=== PATIENT | female | born 1980 | race American Indian/Alaskan Native ===

== ENCOUNTER 2019-09-22 10:01 | Emergency (ER) | payer BC ==
[2019-09-22 10:13] VITALS: BP 121/86
--- NOTE | 2019-09-22 11:10 | Cat Scan Report ---
{null, CT HEAD WITHOUT CONTRAST INDICATION / CLINICAL INFORMATION: neuro deficits <6hrs or sx present upon awakening. TECHNIQUE: Axial imaging performed from the skull apex through the skull base without the use of cont rast. Sagittal and coronal reformatted images. All CT scans at this location are performed using CT dose reduction for ALARA by means of automated exposure control. COMPARISON: None available. FINDINGS: CEREBRAL PARENCHYMA: No significant abnormality. No acute territorial infarct. HEMORRHAGE: None. EXTRA-AXIAL SPACES: Normal in size and morphology for the patient's age. VENTRICULAR SYSTEM: Normal in size and morphology for the patient's age. MIDLINE SHIFT OR HERNIATION: None. CEREBELLUM / BRAINSTEM: No significant abnormality. CALVARIUM: No significant abnormality. ORBITS: Normal as visualized. PARANASAL SINUSES / MASTOID AIR CELLS: Normal as visualized. SOFT TISSUES of HEAD: No significant abnormality. ADDITIONAL FINDINGS: None. IMPRESSION: No acute intracranial abnormality. Signer Name: Magdy Ramirez Jr, MD Signed: 09/22/2019 11:06 AM Workstation Name: [id number] }
[2019-09-22 11:59] LABS: Basophils # (Auto) 0.1 K/mm3 (0.0-0.1); Basophils % (Auto) 1.1 % (0.0-1.8); Eosinophils # (Auto) 0.1 K/mm3 (0.0-0.4); Eosinophils % (Auto) 1.7 % (0.0-4.3); Hematocrit 32.3 % (30.3-42.9); Hemoglobin 10.2 gm/dl (10.1-14.3); Lymphocytes # (Auto) 1.9 K/mm3 (1.2-5.4); Mean Corpuscular HGB Conc 32 % (30-34); Monocytes # (Auto) 0.4 K/mm3 (0.0-0.8); Monocytes % (Auto) 8.9 % (0.0-7.3); Platelet Count 199 K/mm3 (140-440); Red Blood Count 4.62 M/mm3 (3.65-5.03); Red Cell Distribution Width 19.1 % (13.2-15.2)
[2019-09-22 12:01] LABS: Mean Corpuscular Volume 70 fl (79-97)
[2019-09-22 12:13] LABS: INR 1.04 (0.87-1.13)
[2019-09-22 12:14] LABS: Partial Thromboplastin Time 27.8 Sec. (24.2-36.6)
[2019-09-22 12:22] LABS: BUN/Creatinine Ratio 10; Blood Urea Nitrogen 9 mg/dL (7-17); Calcium 9.3 mg/dL (8.4-10.2); Hemolysis Index 1
--- NOTE | 2019-09-22 13:10 | Emergency Department Report ---
{null, Blank Doc - Documentation Documentation: 38-year-old female that presents with acute headache with some blurry vision to the right eye. Exam: neuro exam within normal limits. This initial assessment/diagnostic orders/clinical plan/treatment(s) is/are subject to change based on patient's health status, clinical progression and re- assessment by fellow clinical providers in the ED. Further treatment and workup at subsequent clinical providers discretion. Patient/guardians urged not to elope from the ED as their condition may be serious if not clinically assessed and managed. Initial orders include: 1- Patient sent to [facility] for further evaluation and treatment 2- labs already obtained 3- CT of head within normal limits }
[2019-09-22] MEDS ORDERED: dexAMETHasone 20 MG/5 ML VIAL IV ONE (13:34)
[2019-09-22] MEDS ORDERED: KETOROLAC 30 MG/1 ML INJ IM ONE (13:35)
--- NOTE | 2019-09-22 13:40 | Emergency Department Report ---
{null, ED Headache HPI - General Chief Complaint: Headache Stated Complaint: HEADACHE/VISION CHANGE Time Seen by Provider: 09/22/19 13:08 - History of Present Illness Initial Comments: 38-year-old -[place] female patient with history of anemia presents with complaints of headache and right eye blurred vision times today. Patient states she woke up around 5 AM this morning with a mild 5/10 in severity headache that was bilateral. Patient states around 9 AM she developed decreased vision in part of her right thigh. She denies any further vision changes at this time, but states the headache remains at a 5/10 in severity bilaterally. She describes the headache as throbbing in nature and admits to history of migraines many years ago. Patient states she does not believe she has had a migraine in the past 20 years. She denies any head injuries, numbness/tingling/weakness in her limbs, speech changes, confusion, neck pain, difficulty with ambulation, or dizziness. She also admits to sensitivity to light and sound. Quality: moderate, constant, throbbing Head Injury Location: temporal Allergies/Adverse Reactions: Allergies No Known Allergies Allergy (Unverified 09/22/19 10:16) ED Review of Systems ROS: Stated complaint: HEADACHE/VISION CHANGE Other details as noted in HPI Constitutional: denies: chills, fever Eyes: vision change. denies: eye pain, eye discharge Respiratory: denies: cough, shortness of breath Cardiovascular: denies: chest pain, edema, syncope Endocrine: denies: excessive sweating, flushing Gastrointestinal: denies: abdominal pain, nausea, vomiting Musculoskeletal: denies: back pain Skin: denies: rash, lesions, change in color Neurological: headache. denies: weakness, numbness, paresthesias, confusion, abnormal gait ED Past Medical Hx - Past Medical History Previous Medical History?: Yes Additional medical history: Anemia - Surgical History Past Surgical History?: No ED Physical Exam - General Limitations: No Limitations General appearance: alert, in no apparent distress - Head Head exam: Present: atraumatic, normocephalic - Eye Eye exam: Present: normal appearance, PERRL, EOMI. Absent: scleral icterus - ENT ENT exam: Present: mucous membranes moist - Neck Neck exam: Present: normal inspection - Respiratory Respiratory exam: Present: normal lung sounds bilaterally. Absent: respiratory distress - Cardiovascular Cardiovascular Exam: Present: regular rate, normal rhythm. Absent: systolic murmur, diastolic murmur, rubs, gallop - Extremities Exam Extremities exam: Present: normal inspection - Back Exam Back exam: Present: normal inspection - Neurological Exam Neurological exam: Present: alert, oriented X3, CN II-XII intact, normal gait. Absent: motor sensory deficit - Expanded Neurological Exam Expanded Cranial nerves: EOM's Intact: Normal Cerebellar function: Finger to Nose: Normal, Heel to Salazar: Normal, Romberg: Normal Sensory exam: Upper Extremity Light Touch: Normal, Lower Extremity Light Touch: Normal Motor strength exam: RUE: 5, LUE: 5, RLE: 5, LLE: 5 - Psychiatric Psychiatric exam: Present: normal affect, normal mood - Skin Skin exam: Present: warm ( ), dry, intact, normal color. Absent: rash ED Course Vital Signs 09/22/19 10:13 Temperature 97.9 F Pulse Rate 66 Respiratory 16 Rate Blood Pressure 121/86 [Right] O2 Sat by Pulse 99 Oximetry ED Medical Decision Making - Lab Data Result diagrams: 09/22/19 11:10 09/22/19 11:10 Lab Results 09/22/19 09/22/19 09/22/19 Range/Units 10:20 11:10 11:10 WBC 4.8 (4.5-11.0) K/mm3 RBC 4.62 (3.65-5.03) M/mm3 Hgb 10.2 (10.1-14.3) gm/dl Hct 32.3 (30.3-42.9) % MCV 70 L (79-97) fl MCH 22 L (28-32) pg MCHC 32 (30-34) % RDW 19.1 H (13.2-15.2) % Plt Count 199 (140-440) K/mm3 Lymph % (Auto) 40.0 H (13.4-35.0) % Fountain % (Auto) 8.9 H (0.0-7.3) % Eos % (Auto) 1.7 (0.0-4.3) % Baso % (Auto) 1.1 (0.0-1.8) % Lymph # 1.9 (1.2-5.4) K/mm3 Fountain # 0.4 (0.0-0.8) K/mm3 Eos # 0.1 (0.0-0.4) K/mm3 Baso # 0.1 (0.0-0.1) K/mm3 Seg Neutrophils % 48.3 (40.0-70.0) % Seg Neutrophils # 2.3 (1.8-7.7) K/mm3 PT 13.7 (12.2-14.9) Sec. INR 1.04 (0.87-1.13) APTT 27.8 (24.2-36.6) Sec. Thrombin Time (15.1-19.6) Sec. Sodium (137-145) mmol/L Potassium (3.6-5.0) mmol/L Chloride (98-107) mmol/L Carbon Dioxide (22-30) mmol/L Anion Gap mmol/L BUN (7-17) mg/dL Creatinine (0.7-1.2) mg/dL Estimated GFR ml/min BUN/Creatinine Ratio % Glucose (65-100) mg/dL POC Glucose 112 H (70-105) Calcium (8.4-10.2) mg/dL Troponin T (0.00-0.029) ng/mL 09/22/19 09/22/19 Range/Units 11:10 11:10 WBC (4.5-11.0) K/mm3 RBC (3.65-5.03) M/mm3 Hgb (10.1-14.3) gm/dl Hct (30.3-42.9) % MCV (79-97) fl MCH (28-32) pg MCHC (30-34) % RDW (13.2-15.2) % Plt Count (140-440) K/mm3 Lymph % (Auto) (13.4-35.0) % Fountain % (Auto) (0.0-7.3) % Eos % (Auto) (0.0-4.3) % Baso % (Auto) (0.0-1.8) % Lymph # (1.2-5.4) K/mm3 Fountain # (0.0-0.8) K/mm3 Eos # (0.0-0.4) K/mm3 Baso # (0.0-0.1) K/mm3 Seg Neutrophils % (40.0-70.0) % Seg Neutrophils # (1.8-7.7) K/mm3 PT (12.2-14.9) Sec. INR (0.87-1.13) APTT (24.2-36.6) Sec. Thrombin Time 15.2 (15.1-19.6) Sec. Sodium 139 (137-145) mmol/L Potassium 4.3 (3.6-5.0) mmol/L Chloride 101.0 (98-107) mmol/L Carbon Dioxide 23 (22-30) mmol/L Anion Gap 19 mmol/L BUN 9 (7-17) mg/dL Creatinine 0.9 (0.7-1.2) mg/dL Estimated GFR > 60 ml/min BUN/Creatinine Ratio 10 % Glucose 82 (65-100) mg/dL POC Glucose (70-105) Calcium 9.3 (8.4-10.2) mg/dL Troponin T < 0.010 (0.00-0.029) ng/mL - Radiology Data Radiology results: report reviewed CT HEAD WITHOUT CONTRAST INDICATION / CLINICAL INFORMATION: neuro deficits <6hrs or sx present upon thelma kening. TECHNIQUE: Axial imaging performed from the skull apex through the skull base without the use of contrast. Sagittal and coronal reformatted images. All CT scans at this location are performed using CT dose reduction for ALARA by means of automated exposure control. COMPARISON: None available. FINDINGS: CEREBRAL PARENCHYMA: No significant abnormality. No acute territorial infarct. HEMORRHAGE: None. EXTRA-AXIAL SPACES: Normal in size and morphology for the patient's age. VENTRICULAR SYSTEM: Normal in size and morphology for the patient's age. MIDLINE SHIFT OR HERNIATION: None. CEREBELLUM / BRAINSTEM: No significant abnormality. CALVARIUM: No significant abnormality. ORBITS: Normal as visualized. PARANASAL SINUSES / MASTOID AIR CELLS: Normal as visualized. SOFT TISSUES of HEAD: No significant abnormality. ADDITIONAL FINDINGS: None. IMPRESSION: No acute intracranial abnormality. - Medical Decision Making 38-year-old female here today with complaints of bilateral temporal headache and temporary right vision loss x today. She denies any further vision loss or red flag symptoms. CBC, CMP, and ESR are normal. Neuro exam is normal. Visual acuity is normal. CT head is negative for any acute findings. Patient's vitals are normal. Patient given Decadron and Toradol and states her headache has completely resolved. Patient did admit to history of migraines, however states she has not experienced any migraines in about 20 years. Suspect patient's symptoms were due to migraine with aura. She is nontoxic-appearing and stable for discharge home. Recommend follow-up with neurology for further evaluation. Discussed strict return precautions in detail with patient who verbalizes understanding. Critical care attestation.: If time is entered above; I have spent that time in minutes in the direct care of this critically ill patient, excluding procedure time. ED Disposition Clinical Impression: Sudden visual loss, right eye Migraine with aura Qualifiers: Status migrainosus presence: without status migrainosus Intractability: not intractable Qualified Code(s): G43.109 - Migraine with aura, not intractable, without status migrainosus Disposition: DC-01 TO HOME OR SELFCARE Is pt being admited?: No Condition: Stable Instructions: Migraine Headache (ED) Referrals: BOB LAURA MD [Referring] - 3-5 Days Forms: Work/School Release Form(ED) }
== END 2019-09-22 16:19 | disposition home or self-care (01) ==
LOC: ED 10:01
DX: G43.109 Migraine with aura, not intractable, without status migrainosus (principal); H54.7 Unspecified visual loss
CPT/HCPCS: 36415; 70450; 80048; 82962; 84484; 85025; 85610; 85652; 85670; 85730; 93005; 93010; 96372; 96374; 99285; J1100; J1885